=== PATIENT | female | born 1970 | race Caucasian/White ===

== ENCOUNTER → 2024-09-08 08:00 | Outpatient (REF) | payer BC, SELFPAY | LOC: HWRAD 08:00 | PROVIDERS: ATTENDING PHYSICIAN Chiropractor; FAMILY PHYSICIAN Family Medicine | DX: M54.6 Pain in thoracic spine (principal); M54.2 Cervicalgia; M25.512 Pain in left shoulder | CPT/HCPCS: 72050; 72072; 73030 ==

== ENCOUNTER → 2025-02-02 15:07 | Outpatient (REF) | payer BC, SELFPAY | LOC: HWWDC 15:07 | PROVIDERS: ATTENDING PHYSICIAN Family Medicine | DX: Z12.31 Encounter for screening mammogram for malignant neoplasm of breast (principal) | CPT/HCPCS: 77063; 77067 ==